=== PATIENT | female | born 1935 | race Caucasian/White ===

== ENCOUNTER 2017-03-03 11:08 | Emergency (ER) | payer OTHER, MEDICAID ==
[~2017-03-03] VITALS: Ht 157.5 cm; Wt 74.0 kg
[~2017-03-03 11:08] MED LIST: ADVAI250I PO; ALBU1AER INH; APIX2.5 PO; ARIC5TAB PO; ATOR40TA49 PO; CITRTAB7 PO; FENO1TAB76 PO; KONS520C PO; MEMA5 PO; MONT5CHW2 CHEW; NEXI40CA PO; SERT-132 PO; TEMA15CA PO
[2017-03-03 11:14] VITALS: BP 129/86; PULSE 75; RESP 16; TEMP 98.2; O2SAT 96
[2017-03-03] MEDS ORDERED: ATOR20TA15 PO (11:34)
[2017-03-03] MEDS ORDERED: SERT-132 PO (11:34)
[2017-03-03] MEDS ORDERED: CENTCHW4 CHEW (11:34)
[2017-03-03] MEDS ORDERED: AMLO5TAB2 PO (11:34)
[2017-03-03] MEDS ORDERED: MEMA21CA PO (11:34)
[2017-03-03] MEDS ORDERED: APIX2.5T PO (11:34)
[2017-03-03] MEDS ORDERED: MONT10TA4 PO (11:34)
[2017-03-03] MEDS ORDERED: HYDR-3799 PO (11:34)
[2017-03-03] MEDS ORDERED: VESI10TA PO (11:34)
[2017-03-03] MEDS ORDERED: DONE10TA7 PO (11:34)
[2017-03-03] MEDS ORDERED: PANT40TA3 PO (11:34)
--- NOTE | 2017-03-03 11:50 | PD ---
HPI Chief Complaint: Dizziness Time Seen by Provider: 11:45 Travel History International Travel<30 days: No Contact w/Intl Traveler<30days: No Traveled to known affect area: No History of Present Illness HPI Patient presents with complaints of dizziness that is worse with movement of her head or bending over. Occurring intermittently for the last month. Only occurs in the morning and then dissipates by 2 or 3 in the afternoon. Reports multiple medication cessation trials. States she feels the atorvastatin is responsible for her dizziness. Reports cessation of the sleep aid approximately when these episodes started. Reports poor sleep now. States that initially the episodes only occurred 2-3 times per week but now they're occurring approximately 4 times per week. Reports good fluid intake. States her PCP called in meclizine which she got yesterday but has not taken any. Denies any nausea or vomiting. Self reports dementia. PFSH Past Medical History Hx Anticoagulant Therapy: Yes Alzheimer's Disease: Yes Asthma: Yes Anxiety: Yes Cancer: No Cardiovascular Problems: Yes (htn on med, a-fib) High Cholesterol: Yes Cerebrovascular Accident: Yes (tia) Diminished Hearing: No Endocrine: No Gastrointestinal Disorders: Yes (DIVERTICULITIS) Genitourinary: No Hypertension: Yes Immune Disorder: No Implanted Vascular Access Dvce: No Musculoskeletal: Yes (CHRONIC BACK) Psychiatric: Yes Reproductive: No Respiratory: Yes (asthma) Immunizations Current: Yes Myocardial Infarction: Yes ?: Not Past Surgical History Cholecystectomy: Yes Genitourinary Surgery: Yes (BLADDER LIFT, GALLBLADDER) Gynecologic Surgery: Yes (HYSTERECTOMY) Hysterectomy: Yes Tonsillectomy: Yes Other Surgery: Yes Social History Alcohol Use: Yes (occ) Tobacco Use: Yes (6 cig/day) Substance Use: No Allergies-Medications (Allergen,Severity, Reaction): Coded Allergies: Morphine (Verified Adverse Reaction, Intermediate, Nausea/Vomiting, 03/03/17 ) dizzziness Demerol (Verified Adverse Reaction, Unknown, Headache, 03/03/17) Reported Meds & Prescriptions Reported Meds & Active Scripts Active Reported Pantoprazole (Pantoprazole Sodium) 40 Mg Tab 40 Mg PO DAILY Atorvastatin (Atorvastatin Calcium) 20 Mg Tab 20 Mg PO HS Sertraline (Sertraline HCl) 50 Mg Tab 50 Mg PO DAILY Montelukast (Montelukast Sodium) 10 Mg Tab 10 Mg PO HS Donepezil 10 Mg Tab 10 Mg PO HS Vesicare (Solifenacin) 10 Mg Tab 10 Mg PO DAILY Centrum (Multiple Vitamins W/ Minerals) 1 Chew 1 Tab CHEW DAILY Eliquis (Apixaban) 2.5 Mg Tab 2.5 Mg PO BID Hydralazine HCl 25 Mg Tablet 25 Mg PO BID Amlodipine (Amlodipine Besylate) 5 Mg Tab 5 Mg PO DAILY Namenda Xr (Memantine) 21 Mg Caper 21 Mg PO DAILY Review of Systems General / Constitutional: No: Fever Eyes: No: Visual changes HENT: Positive: Vertigo, No: Headaches Cardiovascular: No: Chest Pain or Discomfort Respiratory: No: Shortness of Breath Gastrointestinal: No: Abdominal Pain Genitourinary: No: Dysuria Musculoskeletal: No: Pain Skin: No Rash Neurologic: No: Weakness Psychiatric: No: Depression Endocrine: No: Polydipsia Hematologic/Lymphatic: No: Easy Bruising Physical Exam Narrative GENERAL: Well-nourished, well-developed patient. SKIN: Focused skin assessment warm/dry. HEAD: Normocephalic. EYES: No scleral icterus. No injection or drainage. NECK: Supple, trachea midline. No JVD or lymphadenopathy. CARDIOVASCULAR: Regular rate and rhythm without murmurs, gallops, or rubs. RESPIRATORY: Breath sounds equal bilaterally. No accessory muscle use. GASTROINTESTINAL: Abdomen soft, non-tender, nondistended. MUSCULOSKELETAL: No cyanosis, or edema. BACK: Nontender without obvious deformity. No CVA tenderness. Data Data Last Documented VS Vital Signs Date Time Temp Pulse Resp B/P Pulse Ox O2 Delivery O2 Flow Rate FiO2 03/03/17 13:11 64 18 165/94 97 Room Air 03/03/17 11:14 98.2 Orders Sodium Chlorid 0.9% 500 Ml Inj (Ns 500 M (03/03/17 12:00) Meclizine (Antivert) (03/03/17 12:00) MDM Medical Decision Making Medical Screen Exam Complete: Yes Emergency Medical Condition: Yes Differential Diagnosis Vertigo, medication noncompliance, fatigue/poor sleep, hypotension Narrative Course Assessment and plan discussed with patient and partner at bedside. Dizziness improved with meclizine. Diagnosis Primary Impression: Vertigo Patient Instructions: General Instructions Additional Instructions: Encourage good fluid intake, encouraged meclizine prescribed by her PCP as directed. Encouraged to follow-up with her PCP. Encouraged to get up slowly. Return to emergency room with any change in symptoms. Med/Other Pt SpecificInfo: No Meds Exist/No RX given Disposition: 01 DISCHARGE HOME Condition: Good Ryan Perez MD Mar 03, 2017 11:50
[2017-03-03] MEDS ORDERED: MECLIZINE HCL 25 MG TAB PO ONE (12:00)
[2017-03-03] MEDS ORDERED: SODIUM CHLORID 0.9% 500 ML INJ 500 ML IV ONE (12:00)
[2017-03-03 13:11] VITALS: BP 165/94; PULSE 64; RESP 18; O2SAT 97
== END 2017-03-03 14:00 | disposition home or self-care (01) ==
LOC: PHED 11:08
DX: R42 Dizziness and giddiness (principal); I10 Essential (primary) hypertension; I25.2 Old myocardial infarction; I48.91 Unspecified atrial fibrillation; F17.210 Nicotine dependence, cigarettes, uncomplicated; Z79.01 Long term (current) use of anticoagulants
CPT/HCPCS: 96360; 99284; J7040